=== PATIENT | male | born 1985 | race Caucasian/White ===

== ENCOUNTER 2021-08-29 20:45 | Emergency (ER) | payer MEDICAID, SELFPAY ==
[2021-08-29] MEDS ORDERED: Bupivacaine PF 0.5% 30 ML VIAL ONE (21:27)
== END 2021-08-29 21:59 | disposition home or self-care (01) ==
LOC: CSHERS 20:45
DX: L05.01 Pilonidal cyst with abscess (principal); I25.2 Old myocardial infarction; F17.210 Nicotine dependence, cigarettes, uncomplicated
CPT/HCPCS: 10080; S0020

== ENCOUNTER 2021-10-24 15:40 | Emergency (ER) | payer BC, SELFPAY ==
[2021-10-24] MEDS ORDERED: Clopidogrel Bisulfate 75 MG TAB ONE (16:13)
[2021-10-24] MEDS ORDERED: Nitroglycerin 2% Ointment 1 INCH/1 GM Packet ONE (16:13)
[2021-10-24 16:15] LABS: #Basophils 0.1 10x3/uL (0.0-0.2); #Eosinphils 0.3 10x3/uL (0.0-0.5); #Neutrophils 9.7 10x3/uL (1.5-8.4); %Basophils 0.6 % (0.0-2.0); %Eosinophils 2.2 % (0.0-6.0); %Lymphocytes 25.8 % (18.0-47.0); %Monocytes 6.5 % (0.0-10.0); %Neutrophils 64.6 % (40.0-75.0); Hemoglobin 17.3 g/dL (13.5-17.5); Mean Corpuscular HGB CONC 34.4 g/dL (32.0-36.0); Mean Platelet Volume 11.6 fl (7.4-10.4); Platelet Count 240 10x3/uL (150-450); RBC Distribution Width 12.9 % (11.5-14.5); Red Blood Cell (RBC) Count 5.24 10x6/uL (4.32-5.72); White Blood Cell (WBC) Count 14.9 10x3/uL (3.5-10.5)
[2021-10-24 16:25] LABS: ALT (SGPT) 32 U/L (8-55); AST (SGOT) 22 U/L (5-34); Albumin 4.2 g/dL (3.5-5.0); Alkaline Phosphatase 85 U/L (40-110); Anion Gap 12 mmol/L (10-20); BUN (Urea Nitrogen) 10 mg/dL (8.9-20.6); Bilirubin, Total 0.8 mg/dL (0.2-1.2); Calc. Creatinine Clearance 0 mL/min (70-130); Calcium 8.8 mg/dL (7.8-10.44); Carbon Dioxide 24 mmol/L (22-29); Chloride 105 mmol/L (98-107); Globulin 2.7 g/dL (2.4-3.5); Glucose 95 mg/dL (70-105); Lipase 24 U/L (8-78); Potassium 4.2 mmol/L (3.5-5.1); Protein, Total 6.9 g/dL (6.0-8.3); Sodium 137 mmol/L (136-145)
== END 2021-10-24 17:19 | disposition home or self-care (01) ==
LOC: CSHERS 15:40
DX: R07.89 Other chest pain (principal); I25.2 Old myocardial infarction; F17.210 Nicotine dependence, cigarettes, uncomplicated
CPT/HCPCS: 71045; 80053; 83690; 84484; 85025; 93005; 94760

== ENCOUNTER 2022-06-26 15:11 | Emergency (ER) | payer BC, MEDICAID ==
[2022-06-26] MEDS ORDERED: Ketorolac Tromethamine 30 MG/ML VIAL ONE (19:52)
[2022-06-26] MEDS ORDERED: Dexamethasone 10 MG/ML VIAL ONE (20:21)
[2022-06-26] MEDS ORDERED: Acetaminophen 500 MG TAB ONE (20:21)
[2022-06-26] MEDS ORDERED: Orphenadrine Citrate 60 MG/2 ML VIAL IM SCH (20:30)
[2022-06-26] MEDS ORDERED: Ketamine 50 MG/ML (10ML VIAL) ONE (20:43)
== END 2022-06-26 22:50 | disposition home or self-care (01) ==
LOC: CSHERS 15:11
DX: S29.012A Strain of muscle and tendon of back wall of thorax, initial encounter (principal); I25.2 Old myocardial infarction; F17.290 Nicotine dependence, other tobacco product, uncomplicated; X50.9XXA Other and unspecified overexertion or strenuous movements or postures, initial encounter
CPT/HCPCS: 71045; 72128; 72131; 96372; 96374; J1100; J1885; J2360

== ENCOUNTER 2023-01-08 20:58 | Emergency (ER) | payer BC, MEDICAID, OTHER | END 2023-01-08 22:23 | disposition home or self-care (01) | LOC: CSHERS 20:58 | DX: S20.212A Contusion of left front wall of thorax, initial encounter (principal); F17.210 Nicotine dependence, cigarettes, uncomplicated; W22.8XXA Striking against or struck by other objects, initial encounter ==

== ENCOUNTER 2023-03-21 17:59 | Emergency (ER) | payer OTHER ==
[2023-03-21 18:33] LABS: #Basophils 0.1 10x3/uL (0.0-0.2); #Eosinphils 0.2 10x3/uL (0.0-0.5); #Neutrophils 8.1 10x3/uL (1.5-8.4); %Basophils 0.6 % (0.0-2.0); %Eosinophils 1.8 % (0.0-6.0); %Lymphocytes 28.9 % (18.0-47.0); %Monocytes 7.2 % (0.0-10.0); %Neutrophils 61.2 % (40.0-75.0); Hemoglobin 18.4 g/dL (13.5-17.5); Mean Corpuscular HGB CONC 35.4 g/dL (32.0-36.0); Mean Corpuscular Hemoglobin 33.2 pg (27.0-33.0); Mean Corpuscular Volume 93.9 fl (81.2-95.1); Mean Platelet Volume 11.1 fl (7.4-10.4); Platelet Count 268 10x3/uL (150-450); RBC Distribution Width 13.1 % (11.5-14.5); Red Blood Cell (RBC) Count 5.54 10x6/uL (4.32-5.72); White Blood Cell (WBC) Count 13.3 10x3/uL (3.5-10.5)
[2023-03-21] MEDS ORDERED: Metoclopramide HCl 10 MG/2 ML VIAL ONE (18:43)
[2023-03-21] MEDS ORDERED: Acetaminophen 500 MG TAB ONE (18:44)
[2023-03-21] MEDS ORDERED: diphenhydrAMINE 50 MG/ML VIAL ONE (18:44)
[2023-03-21 18:47] LABS: ALT (SGPT) 38 U/L (8-55); AST (SGOT) 23 U/L (5-34); Albumin 4.5 g/dL (3.5-5.0); Alkaline Phosphatase 98 U/L (40-110); Anion Gap 15 mmol/L (10-20); BUN (Urea Nitrogen) 8 mg/dL (8.9-20.6); Bilirubin, Total 0.7 mg/dL (0.2-1.2); Calc. Creatinine Clearance 0 mL/min (70-130); Carbon Dioxide 22 mmol/L (22-29); Chloride 104 mmol/L (98-107); Estimated GFR 114; Globulin 2.8 g/dL (2.4-3.5); Glucose 96 mg/dL (70-105); Potassium 4.4 mmol/L (3.5-5.1); Protein, Total 7.3 g/dL (6.0-8.3); Sodium 137 mmol/L (136-145)
== END 2023-03-21 21:20 | disposition home or self-care (01) ==
LOC: CSHERS 17:59
DX: R51.9 Headache, unspecified (principal); E86.0 Dehydration; D72.829 Elevated white blood cell count, unspecified; F17.290 Nicotine dependence, other tobacco product, uncomplicated
CPT/HCPCS: 71045; 80053; 84484; 85025; 93005; 94760; 96374; 96375; J1200; J2765

== ENCOUNTER 2023-11-06 18:43 | Emergency (ER) | payer OTHER ==
[~2023-11-06 18:43] MED LIST: Iopamidol 370 76% 100 ML VIAL ONE
== END 2023-11-06 21:16 | disposition home or self-care (01) ==
LOC: CSHERS 18:43
DX: S10.93XA Contusion of unspecified part of neck, initial encounter (principal); F17.290 Nicotine dependence, other tobacco product, uncomplicated; W22.8XXA Striking against or struck by other objects, initial encounter
CPT/HCPCS: 70498; Q9967

== ENCOUNTER 2024-05-07 21:39 | Observation (INO) | payer OTHER ==
[~2024-05-07 21:39] MED LIST changes: +Iopamidol 300 61% 100 ML VIAL FS ONE
[2024-05-07 22:11] LABS: #Basophils 0.12 10x3/uL (0.0-0.2); #Eosinphils 0.21 10x3/uL (0.0-0.5); #Monocytes 0.81 10x3/uL (0.0-1.1); #Neutrophils 5.71 10x3/uL (1.5-8.4); %Eosinophils 1.8 % (0.0-6.0); %Lymphocytes 40.7 % (18.0-47.0); %Neutrophils 49.2 % (40.0-75.0); Hematocrit 52.3 % (38.8-50.0); Mean Corpuscular HGB CONC 36.3 g/dL (32.0-36.0); Mean Corpuscular Hemoglobin 34.4 pg (27.0-33.0); Mean Corpuscular Volume 94.7 fL (81.2-95.1); Mean Platelet Volume 10.8 fL (7.4-10.4); Platelet Count 267 10x3/uL (150-450); RBC Distribution Width 12.7 % (11.5-14.5); Red Blood Cell (RBC) Count 5.52 10x6/uL (4.32-5.72); White Blood Cell (WBC) Count 11.6 10x3/uL (3.5-10.5)
[2024-05-07 22:12] LABS: PTT 28.7 sec (22.0-33.0); Prothrombin Time 10.9 sec (9.5-12.1)
[2024-05-07 22:16] LABS: ALT (SGPT) 27 U/L (8-55); AST (SGOT) 20 U/L (5-34); Albumin 4.6 g/dL (3.5-5.0); Alkaline Phosphatase 89 U/L (40-110); Anion Gap 17 mmol/L (10-20); BUN (Urea Nitrogen) 6 mg/dL (8.9-20.6); Bilirubin, Total 0.9 mg/dL (0.2-1.2); Calc. Creatinine Clearance 0 mL/min (70-130); Calcium 9.7 mg/dL (7.8-10.44); Carbon Dioxide 20 mmol/L (22-29); Chloride 104 mmol/L (98-107); Estimated GFR 112; Globulin 3.3 g/dL (2.4-3.5); Glucose 97 mg/dL (70-105); Potassium 3.8 mmol/L (3.5-5.1); Protein, Total 7.9 g/dL (6.0-8.3); Sodium 137 mmol/L (136-145)
[2024-05-07 22:22] LABS: Troponin I Less than 0.010 ng/mL (< 0.028)
[2024-05-07] MEDS ORDERED: Clopidogrel Bisulfate 75 MG TAB ONE (23:04)
[2024-05-08] MEDS ORDERED: Ondansetron PF 4 MG/2 ML Vial IVP PRN (00:06)
[2024-05-08] MEDS ORDERED: Acetaminophen 325 MG TAB PO PRN (00:06)
[2024-05-08] MEDS ORDERED: Acetaminophen 650 MG Suppository PR PRN (00:06)
[2024-05-08] MEDS ORDERED: Ondansetron ODT 4 MG TAB PO PRN (00:06)
[2024-05-08 00:39] VITALS: BMI 28.3
[2024-05-08 01:23] VITALS: BP 140/89; TEMP 98.3
[2024-05-08] MEDS ORDERED: Enoxaparin 40 MG (0.4 mL) SYRINGE SC SCH (09:00)
[2024-05-08] MEDS ORDERED: Clopidogrel Bisulfate 75 MG TAB PO SCH (09:00)
[2024-05-08] MEDS ORDERED: Atorvastatin Calcium 40 MG TAB PO SCH (21:00)
== END 2024-05-08 02:20 | disposition home or self-care (01) ==
LOC: CSHERS 21:39 → SUATTDRO 21:39 → CSHTELE 23:25
PROVIDERS: ADMIT Family Medicine; ATTEND Family Medicine
DX: R07.9 Chest pain, unspecified (principal); R53.1 Weakness
CPT/HCPCS: 0042T; 36416; 70450; 71275; 74174; 80053; 80307; 84484; 85025; 85610; 85730; 93005; 94762; G0378; Q9967